=== PATIENT | male | born 1940 | race Caucasian/White ===

== ENCOUNTER 2017-12-10 09:34 | Inpatient (IN) ==
[~2017-12-10 09:34] MED LIST: DEXTROSE 50% 25 GM/50 ML VIAL IV PRN; GLUCAGON 1 MG VIAL IM PRN; NON-FORMULARY MEDICATION (Multivitamin [Multivitamins] 1 EACH) PO SCH; NON-FORMULARY MEDICATION (Oxycodone Hcl [Oxycodone Hcl] 10 MG) PO PRN; amLODIPine 10 MG TABLET PO SCH; traMADol 50 MG TABLET PO PRN
[2017-12-10 10:56] LABS: Basophils # 0.1 10*3/uL (0.0-0.2); Basophils % 0.6 % (0.0-0.8); Eosinophils # 0.3 10*3/uL (0.0-0.87); Eosinophils % 4.4 % (0.00-10.9); Hematocrit 38.6 VOL% (42.0-52.0); Hemoglobin 12.3 GM/DL (14.0-18.0); Immature Granulocytes % 0.4 %; Immature Granulocytes Absolute 0.03 #; Lymphocytes # 2.1 10*3/uL (1.4-4.0); Lymphocytes % 26.7 % (21.2-54.2); Mean Corpuscular HGB Conc 31.9 GM/DL (32-36); Mean Corpuscular Hemoglobin 29 PG (27-34); Mean Corpuscular Volume 91.3 FL (87-102); Mean Platelet Volume 10.6 FL (9.6-12.0); Monocytes # 0.7 10*3/uL (0.11-0.8); Monocytes % 9.5 % (1.7-12.7); Neutrophils # 4.5 10*3/uL (1.4-7.4); Neutrophils % 58.4 % (38.7-73.9); Platelet Count 193 T/CUMM (130-400); Red Blood Count 4.23 MC/CUMM (3.8-5.5); Red Cell Distribution Width 14.1 % (9.3-17.3); White Blood Count 7.8 T/CUMM (4-12)
[2017-12-10 11:31] LABS: Alanine Aminotransferase 18 U/L (16-61); Albumin 3.5 G/DL (3.4-5.0); Alkaline Phosphatase 67 U/L (45-117); Aspartate Amino Transferase 24 U/L (0-37); Bilirubin,Total < 0.39 MG/DL (0.2-1.0); Blood Urea Nitrogen 24 MG/DL (7-18); Calcium 8.2 MG/DL (8.5-10.1); Glucose 90 MG/DL (74-106); Osmolality,Calculated 282.4 MOS/KG (273-304); Potassium 4.2 MMOL/L (3.5-5.1); Sodium 140 MMOL/L (136-145); Total Protein 6.5 G/DL (6.4-8.3)
[2017-12-10] MEDS: CHLORHEXIDINE 0.12% ORAL RINSE 60 ML BOTTLE SWISH/SPIT SCH ×4 (11:43→20:54)
[2017-12-10 12:17] LABS: ABG Base Excess -0.5 MMOL/L (-2.5-2.5); ABG Oxygen Saturation 97.1 % (95-100); ABG PCO2 36.3 MM HG (35-48); ABG PO2 79.9 MM HG (80-95)
[2017-12-10] MEDS: oxyCODONE IR 5 MG TABLET PO PRN ×3 (13:17→23:50)
[2017-12-10] MEDS: CHLORHEXIDINE 4% SOLN 118 ML BOTTLE TOP SCH ×2 (13:45→20:52)
[2017-12-10] MEDS ORDERED: GLUCAGON 1 MG VIAL IM PRN (15:00)
[2017-12-10] MEDS ORDERED: traMADol 50 MG TABLET PO PRN (15:00)
[2017-12-10] MEDS ORDERED: SODIUM CHLORIDE 0.9% 1,000 ML IV SCH (15:00)
[2017-12-10] MEDS ORDERED: DEXTROSE 50% 25 GM/50 ML VIAL IV PRN (15:00)
[2017-12-10] MEDS ORDERED: CHLORHEXIDINE 4% SOLN 118 ML BOTTLE TOP SCH (15:00)
[2017-12-10] MEDS: SODIUM CHLORIDE 0.9% 1,000 ML IV SCH (15:03)
[2017-12-11] MEDS ORDERED: CEFUROXIME INJ 1,500 MG in SODIUM CHLORIDE 0.9% 50 ML IV ONE (05:00)
[2017-12-11] MEDS: CHLORHEXIDINE 4% SOLN 118 ML BOTTLE TOP SCH ×2 (05:00→11:15)
[2017-12-11] MEDS ORDERED: amLODIPine 10 MG TABLET PO SCH (05:00)
[2017-12-11] MEDS ORDERED: VANCOMYCIN 1,000 MG VIAL ONE (05:22)
[2017-12-11] MEDS ORDERED: FAMOTIDINE 20 MG TABLET PO ONE (05:30)
[2017-12-11] MEDS ORDERED: DIAZEPAM 5 MG TABLET PO ONE (05:30)
[2017-12-11] MEDS: CHLORHEXIDINE 0.12% ORAL RINSE 60 ML BOTTLE SWISH/SPIT SCH ×2 (05:41→21:06)
[2017-12-11] MEDS ORDERED: PHENYLEPHRINE DRIP 40 MG/250 ML PREMIX IV ONE (07:08)
[2017-12-11] MEDS ORDERED: CALCIUM CHLORIDE 1,000 MG/10 ML SYRINGE IV ONE (07:08)
[2017-12-11] MEDS ORDERED: NITROPRUSSIDE 50 MG/2 ML VIAL ONE (07:08)
[2017-12-11] MEDS ORDERED: POTASSIUM CHLORIDE RIDER 100 ML IV ONE (07:09)
[2017-12-11] MEDS ORDERED: ALBUMIN 5% 12.5 GM/250 ML VIAL IV ONE (07:10)
[2017-12-11] MEDS ORDERED: SODIUM BICARBONATE 50 MEQ/50 ML SYRINGE IV ONE (07:10)
[2017-12-11] MEDS ORDERED: EPINEPHrine 1 MG/10 ML SYRINGE ONE (07:10)
[2017-12-11 07:38] LABS: ABG Base Excess 0.7 MMOL/L (-2.5-2.5); ABG HCO3 25.1 MMOL/L (20-26); ABG PCO2 28.1 MM HG (35-48); ABG PH 7.514 (7.35-7.45); ABG TCO2 19.9 MMOL/L (23-27); Glucose Heart Surgery 115 MG/DL (74-106); Hematocrit Heart Surgery 36.6 PERCENT (42-52); Hemoglobin Heart Surgery 11.9 G/DL (14.0-18.0); Ionized Calcium Arterial 1.14 MMOL/L (1.21-1.46); PCO2 Patient Temp Arterial 28.1 MMHG; PH Patient Temp Arterial 7.514; Patient Temperature 37 CELCIUS; Potassium Heart/CVR 3.6 MMOL/L (3.5-5.1); Sodium Heart/CVR 140 MMOL/L (135-145)
[2017-12-11 07:50] LABS: Apearance,Urine CLEAR (Clear); Bilirubin,Urine Negative (Negative); Blood, Urine Negative (Negative); Glucose,Urine (UA) Negative (Negative); Ketones,Urine Negative (Negative); Nitrite,Urine Negative (Negative); Protein,Urine Negative; RBC,Urine <1 /HPF (0-4); Squamous Epithelial Cell,Urine Occasional /HPF (0-10); Urine Color Straw (Yellow); Urine Specific Gravity 1.006 (1.001-1.035); Urine Urobilinogen < 2.0 EU/DL (0.2-1.0)
[2017-12-11 08:29] LABS: Hemoglobin Heart Surgery 9.2 G/DL (14.0-18.0); PCO2 Patient Temp Venous 32.9 MM HG; PH Patient Temp Venous 7.483; Potassium Heart/CVR 3.6 MMOL/L (3.5-5.1); VBG Base Excess 0.7 MEQ/L (0-4); VBG HCO3 24.8 MEQ/L (24-28); VBG Oxygen Saturation 83.8 %; VBG PCO2 37.5 MMHG (41-51); VBG PH 7.438; VBG PO2 50.6 MMHG (17-40)
[2017-12-11 08:56] LABS: Hemoglobin Heart Surgery 8.7 G/DL (14.0-18.0); PCO2 Patient Temp Venous 30.4 MM HG; PH Patient Temp Venous 7.505; PO2 Patient Temp Venous 36.9 MM HG; Potassium Heart/CVR 4.4 MMOL/L (3.5-5.1); VBG Base Excess 1.4 MEQ/L (0-4); VBG HCO3 25.5 MEQ/L (24-28); VBG Oxygen Saturation 83.7 %; VBG PCO2 35.2 MMHG (41-51); VBG PH 7.46; VBG PO2 45.5 MMHG (17-40)
[2017-12-11] MEDS ORDERED: MULTIVITAMIN (CENTRUM) TABLET PO SCH (09:00)
[2017-12-11 09:26] LABS: Hematocrit Heart Surgery 27.6 PERCENT (42-52); Hemoglobin Heart Surgery 8.9 G/DL (14.0-18.0); PCO2 Patient Temp Venous 37.5 MM HG; PH Patient Temp Venous 7.439; PO2 Patient Temp Venous 44.4 MM HG; Potassium Heart/CVR 4.7 MMOL/L (3.5-5.1); VBG Base Excess 1.3 MEQ/L (0-4); VBG HCO3 25.4 MEQ/L (24-28); VBG Oxygen Saturation 81.5 %; VBG PCO2 37.5 MMHG (41-51); VBG PH 7.439; VBG PO2 44.4 MMHG (17-40)
[2017-12-11 09:55] LABS: ABG Base Excess -0.2 MMOL/L (-2.5-2.5); ABG HCO3 24.4 MMOL/L (20-26); ABG PCO2 39.5 MM HG (35-48); ABG PH 7.408 (7.35-7.45); ABG PO2 321.1 MM HG (80-95); ABG TCO2 25.6 MMOL/L (23-27); Glucose Heart Surgery 186 MG/DL (74-106); Hemoglobin Heart Surgery 10.5 G/DL (14.0-18.0); Ionized Calcium Arterial 1.25 MMOL/L (1.21-1.46); PCO2 Patient Temp Arterial 39.5 MMHG; PH Patient Temp Arterial 7.408; PO2 Patient Temp Arterial 321.1 MM HG; Patient Temperature 37 CELCIUS; Potassium Heart/CVR 4.1 MMOL/L (3.5-5.1); Sodium Heart/CVR 133 MMOL/L (135-145)
[2017-12-11] MEDS ORDERED: MAGNESIUM SULFATE 1 GM/2 ML VIAL ONE (10:10)
[2017-12-11] MEDS ORDERED: methylPREDNISolone SOD SUC 1,000 MG/8 ML VIAL ONE (10:10)
[2017-12-11] MEDS ORDERED: PHENYLEPHRINE DRIP 20 MG/250 ML PREMIX IV ONE ×2 (10:10→10:44)
[2017-12-11] MEDS ORDERED: HEPARIN 10,000 UNIT/10 ML VIAL ONE (10:10)
[2017-12-11] MEDS ORDERED: ALBUMIN 25% 25 GM/100 ML VIAL IV ONE (10:10)
[2017-12-11] MEDS ORDERED: MANNITOL 12.5 GM/50 ML VIAL IV ONE (10:10)
[2017-12-11] MEDS ORDERED: POTASSIUM CHLORIDE 20 MEQ/10 ML VIAL ONE (10:10)
[2017-12-11] MEDS ORDERED: FUROSEMIDE 20 MG/2 ML VIAL ONE (10:10)
[2017-12-11] MEDS ORDERED: AMIODARONE 150 MG/3 ML VIAL ONE ×2 (10:33→10:45)
[2017-12-11] MEDS ORDERED: SEVOFLURANE 1 UNIT/15 MINUTE INH ONE (10:44)
[2017-12-11] MEDS ORDERED: CALCIUM CHLORIDE 1,000 MG/10 ML VIAL IV ONE (10:44)
[2017-12-11] MEDS ORDERED: HEPARIN/NACL 0.9% 2 UNITS/ML 500 ML IV ONE (10:44)
[2017-12-11] MEDS ORDERED: MIDAZOLAM 10 MG/2 ML VIAL ONE (10:44)
[2017-12-11] MEDS ORDERED: SUFentanil 250 MCG/5 ML AMP ONE (10:44)
[2017-12-11] MEDS ORDERED: VECURONIUM 10 MG VIAL IV ONE (10:45)
[2017-12-11] MEDS ORDERED: SODIUM CHLORIDE 0.9% 2,000 ML IV ONE (10:45)
[2017-12-11] MEDS ORDERED: LACTATED RINGERS 2,000 ML IV ONE (10:45)
[2017-12-11] MEDS ORDERED: SODIUM CHLORIDE 0.9% 250 ML IV ONE (10:45)
[2017-12-11] MEDS ORDERED: TRANEXAMIC ACID 1,000 MG/10 ML VIAL IV ONE (10:45)
[2017-12-11] MEDS ORDERED: SODIUM CHLORIDE 0.9% 200 ML IV ONE (10:45)
[2017-12-11] MEDS ORDERED: ePHEDrine 50 MG/ML AMP ONE (10:45)
[2017-12-11] MEDS ORDERED: ETOMIDATE 40 MG/20 ML VIAL IV ONE (10:45)
[2017-12-11] MEDS ORDERED: NITROGLYCERIN DRIP 50 MG/250 ML BOTTLE IV ONE ×2 (10:45→11:04)
[2017-12-11] MEDS ORDERED: CALCIUM CHLORIDE 1,000 MG/10 ML SYRINGE IV PRN (10:58)
[2017-12-11] MEDS ORDERED: MIDAZOLAM 2 MG/2 ML VIAL IV PRN (10:58)
[2017-12-11] MEDS ORDERED: MORPHINE 2 MG/1 ML SYRINGE IV PRN (10:58)
[2017-12-11] MEDS ORDERED: MAGNESIUM SULF RIDER 2 GM in PREMIX 1 EACH IV PRN (10:58)
[2017-12-11] MEDS ORDERED: POTASSIUM CHLORIDE RIDER 10 MEQ in PREMIX 1 EACH IV PRN (10:58)
[2017-12-11] MEDS ORDERED: MAGNESIUM SULF RIDER 4 GM in PREMIX 1 EACH IV PRN (10:58)
[2017-12-11] MEDS ORDERED: PHENYLEPHRINE DRIP 40 MG/250 ML PREMIX IV PRN (10:58)
[2017-12-11] MEDS ORDERED: ALBUMIN 5% 12.5 GM in PREMIX 1 EACH IV PRN (10:58)
[2017-12-11] MEDS ORDERED: DEXTROSE 50% 25 GM/50 ML VIAL IV PRN ×2 (10:58)
[2017-12-11] MEDS ORDERED: NITROPRUSSIDE 100 MG in DEXTROSE 5% 250 ML IV PRN (10:58)
[2017-12-11] MEDS ORDERED: INSULIN REGULAR 100 UNIT/ML IV PRN (10:58)
[2017-12-11] MEDS ORDERED: VECURONIUM 10 MG VIAL IV PRN ×2 (10:58)
[2017-12-11] MEDS ORDERED: LACTATED RINGERS 250 ML IV PRN (10:58)
[2017-12-11] MEDS ORDERED: MIDAZOLAM 10 MG/2 ML VIAL IV PRN (10:58)
[2017-12-11] MEDS ORDERED: ONDANSETRON 4 MG/2 ML VIAL IV PRN (10:58)
[2017-12-11] MEDS ORDERED: ACETAMINOPHEN 650 MG SUPP RECTAL PRN (10:58)
[2017-12-11] MEDS ORDERED: INSULIN REGULAR 100 UNIT/ML IV ONE (10:58)
[2017-12-11] MEDS ORDERED: SODIUM CHLORIDE 0.45% 1,000 ML IV SCH ×2 (11:00)
[2017-12-11] MEDS ORDERED: INSULIN REGULAR DRIP 100 ML IV SCH (11:00)
[2017-12-11 11:03] LABS: Basophils % 0.3 % (0.0-0.8); Eosinophils # 0.1 10*3/uL (0.0-0.87); Eosinophils % 0.8 % (0.00-10.9); Hematocrit 32.4 VOL% (42.0-52.0); Hemoglobin 10.7 GM/DL (14.0-18.0); Immature Granulocytes % 0.6 %; Immature Granulocytes Absolute 0.06 #; Lymphocytes # 0.8 10*3/uL (1.4-4.0); Lymphocytes % 8.1 % (21.2-54.2); Mean Corpuscular Hemoglobin 29 PG (27-34); Mean Corpuscular Volume 88.8 FL (87-102); Mean Platelet Volume 10.7 FL (9.6-12.0); Monocytes # 0.3 10*3/uL (0.11-0.8); Monocytes % 3.6 % (1.7-12.7); Neutrophils # 8.1 10*3/uL (1.4-7.4); Neutrophils % 86.6 % (38.7-73.9); Platelet Count 147 T/CUMM (130-400); Red Blood Count 3.65 MC/CUMM (3.8-5.5); Red Cell Distribution Width 13.7 % (9.3-17.3); White Blood Count 9.3 T/CUMM (4-12)
[2017-12-11 11:09] LABS: ABG Base Excess 0.7 MMOL/L (-2.5-2.5); ABG HCO3 22.6 MMOL/L (20-26); ABG Oxygen Saturation 98.7 % (95-100); ABG PCO2 27.7 MM HG (35-48); ABG PH 7.529 (7.35-7.45); ABG PO2 174.5 MM HG (80-95); ABG TCO2 23.4 MMOL/L (23-27); Glucose Heart Surgery 171 MG/DL (74-106); Hemoglobin Heart Surgery 11.4 G/DL (14.0-18.0)
[2017-12-11] MEDS: POTASSIUM CHLORIDE RIDER 20 MEQ in PREMIX 1 EACH IV PRN ×4 (11:17→16:11)
[2017-12-11 11:26] LABS: INR 1.3; PT Patient Result 13.2 SECS; Partial Thromboplastin Time 29.9 SECS (0-40)
[2017-12-11] MEDS ORDERED: AMIODARONE INJ 450 MG in DEXTROSE 5% 241 ML IV SCH ×2 (11:30→18:00)
[2017-12-11] MEDS ORDERED: NITROGLYCERIN DRIP 50 MG/250 ML BOTTLE IV SCH (11:30)
[2017-12-11 11:33] LABS: Bilirubin,Total 1.2 MG/DL (0.2-1.0); Calcium 10.1 MG/DL (8.5-10.1); Magnesium 2.1 MG/DL (1.8-2.4); Osmolality,Calculated 283.5 MOS/KG (273-304); Potassium 4.1 MMOL/L (3.5-5.1); Total Protein 5.6 G/DL (6.4-8.3)
[2017-12-11 11:42] LABS: Troponin I Only 2.04 NG/ML (0.00-0.045)
[2017-12-11] MEDS: KETOROLAC 30 MG/1 ML VIAL IV SCH ×3 (12:11→23:32)
[2017-12-11 12:15] LABS: ABG Base Excess 0.5 MMOL/L (-2.5-2.5); ABG HCO3 23.8 MMOL/L (20-26); ABG Oxygen Saturation 98.7 % (95-100); ABG PCO2 33.7 MM HG (35-48); ABG PH 7.466 (7.35-7.45); ABG PO2 148.1 MM HG (80-95); ABG TCO2 24.8 MMOL/L (23-27); Glucose Heart Surgery 186 MG/DL (74-106); Hemoglobin Heart Surgery 12.2 G/DL (14.0-18.0); Potassium Heart/CVR 4.2 MMOL/L (3.5-5.1)
[2017-12-11] MEDS: INSULIN REGULAR 100 UNIT/ML SUBCUT SCH ×3 (13:03→19:24)
[2017-12-11 13:48] LABS: ABG Base Excess -0.5 MMOL/L (-2.5-2.5); ABG HCO3 24.1 MMOL/L (20-26); ABG PCO2 39.5 MM HG (35-48); ABG PH 7.396 (7.35-7.45); ABG TCO2 21.6 MMOL/L (23-27); Glucose Heart Surgery 229 MG/DL (74-106); Hematocrit Heart Surgery 35.9 PERCENT (42-52); Hemoglobin Heart Surgery 11.7 G/DL (14.0-18.0); Potassium Heart/CVR 4.3 MMOL/L (3.5-5.1)
[2017-12-11] MEDS: MORPHINE 10 MG/1 ML VIAL IV PRN ×3 (14:52→23:56)
[2017-12-11 15:49] LABS: ABG Base Excess -1.6 MMOL/L (-2.5-2.5); ABG HCO3 23.1 MMOL/L (20-26); ABG Oxygen Saturation 98.9 % (95-100); ABG PCO2 40.3 MM HG (35-48); ABG PH 7.373 (7.35-7.45); Glucose Heart Surgery 247 MG/DL (74-106); Hemoglobin Heart Surgery 11.7 G/DL (14.0-18.0); Potassium Heart/CVR 4.7 MMOL/L (3.5-5.1)
[2017-12-11] MEDS: CEFUROXIME INJ 1,500 MG in SYRINGE 1 EACH IV SCH (18:25)
[2017-12-11] MEDS ORDERED: FUROSEMIDE 40 MG/4 ML VIAL IV ONE (18:28)
[2017-12-11 19:09] LABS: ABG Base Excess -0.9 MMOL/L (-2.5-2.5); ABG HCO3 23.7 MMOL/L (20-26); ABG Oxygen Saturation 96.9 % (95-100); ABG PCO2 38.9 MM HG (35-48); ABG PH 7.402 (7.35-7.45); ABG TCO2 24.9 MMOL/L (23-27); Glucose Heart Surgery 231 MG/DL (74-106); Hemoglobin Heart Surgery 12.1 G/DL (14.0-18.0); Potassium Heart/CVR 4.8 MMOL/L (3.5-5.1)
[2017-12-11 22:06] LABS: CKMB % 6.9 %
[2017-12-11 22:20] LABS: ABG Base Excess -1.5 MMOL/L (-2.5-2.5); ABG HCO3 22.7 MMOL/L (20-26); ABG Oxygen Saturation 97.4 % (95-100); ABG PCO2 36.5 MM HG (35-48); ABG PH 7.411 (7.35-7.45); ABG TCO2 23.8 MMOL/L (23-27); Glucose Heart Surgery 203 MG/DL (74-106); Hemoglobin Heart Surgery 12.2 G/DL (14.0-18.0); Potassium Heart/CVR 4.4 MMOL/L (3.5-5.1)
[2017-12-11 22:22] LABS: Troponin I Only 3.62 NG/ML (0.00-0.045)
[2017-12-11 23:44] LABS: ABG Base Excess -1.9 MMOL/L (-2.5-2.5); ABG Oxygen Saturation 97.1 % (95-100); ABG PH 7.417 (7.35-7.45); ABG TCO2 23.1 MMOL/L (23-27); Glucose Heart Surgery 196 MG/DL (74-106); Hemoglobin Heart Surgery 12.1 G/DL (14.0-18.0); Potassium Heart/CVR 4.2 MMOL/L (3.5-5.1)
[2017-12-12 00:25] LABS: ABG HCO3 22.2 MMOL/L (20-26); ABG Oxygen Saturation 94.5 % (95-100); ABG PCO2 36.1 MM HG (35-48); ABG PH 7.407 (7.35-7.45); ABG PO2 76.8 MM HG (80-95); ABG TCO2 23.3 MMOL/L (23-27); Glucose Heart Surgery 188 MG/DL (74-106); Hemoglobin Heart Surgery 11.8 G/DL (14.0-18.0); Potassium Heart/CVR 4.2 MMOL/L (3.5-5.1)
[2017-12-12] MEDS: INSULIN REGULAR 100 UNIT/ML SUBCUT SCH ×7 (00:48→23:35)
[2017-12-12 01:41] LABS: ABG Base Excess -1.1 MMOL/L (-2.5-2.5); ABG HCO3 23.3 MMOL/L (20-26); ABG Oxygen Saturation 94.8 % (95-100); ABG PCO2 38.2 MM HG (35-48); ABG PH 7.404 (7.35-7.45); ABG TCO2 24.5 MMOL/L (23-27); Glucose Heart Surgery 166 MG/DL (74-106); Hemoglobin Heart Surgery 11.7 G/DL (14.0-18.0); Potassium Heart/CVR 4.2 MMOL/L (3.5-5.1)
[2017-12-12] MEDS: POTASSIUM CHLORIDE RIDER 20 MEQ in PREMIX 1 EACH IV PRN ×2 (02:07→05:45)
[2017-12-12] MEDS ORDERED: FUROSEMIDE 40 MG/4 ML VIAL IV ONE (02:30)
[2017-12-12 04:30] LABS: ABG Base Excess 0.6 MMOL/L (-2.5-2.5); ABG HCO3 24.6 MMOL/L (20-26); ABG Oxygen Saturation 92.6 % (95-100); ABG PCO2 37.5 MM HG (35-48); ABG PH 7.435 (7.35-7.45); ABG PO2 67.1 MM HG (80-95); ABG TCO2 25.8 MMOL/L (23-27); Glucose Heart Surgery 150 MG/DL (74-106); Hemoglobin Heart Surgery 11.6 G/DL (14.0-18.0)
[2017-12-12 04:37] LABS: Basophils % 0.1 % (0.0-0.8); Hematocrit 32.7 VOL% (42.0-52.0); Hemoglobin 11.1 GM/DL (14.0-18.0); Immature Granulocytes % 0.5 %; Lymphocytes # 0.8 10*3/uL (1.4-4.0); Mean Corpuscular HGB Conc 33.9 GM/DL (32-36); Mean Corpuscular Hemoglobin 30 PG (27-34); Mean Corpuscular Volume 88.1 FL (87-102); Mean Platelet Volume 11.1 FL (9.6-12.0); Monocytes # 0.8 10*3/uL (0.11-0.8); Monocytes % 4.1 % (1.7-12.7); Neutrophils # 17.8 10*3/uL (1.4-7.4); Neutrophils % 91.3 % (38.7-73.9); Platelet Count 166 T/CUMM (130-400); Red Blood Count 3.71 MC/CUMM (3.8-5.5); Red Cell Distribution Width 13.9 % (9.3-17.3); White Blood Count 19.5 T/CUMM (4-12)
[2017-12-12 05:04] LABS: Giant Platelets Few; Hypochromasia 1+; Lymphocytes 2 % (20-55); Ovalocytes Slight; Platelet Estimate Normal; Segmented Neutrophils 92 % (50-85); Total Cells Counted 100
[2017-12-12 05:12] LABS: CKMB % 4.8 %
[2017-12-12 05:14] LABS: Troponin I Only 2.38 NG/ML (0.00-0.045)
[2017-12-12 05:17] LABS: Albumin 3.5 G/DL (3.4-5.0); Bilirubin,Direct 0.17 MG/DL (0.0-0.20); Bilirubin,Total 0.6 MG/DL (0.2-1.0); Calcium 8.9 MG/DL (8.5-10.1); Osmolality,Calculated 289.3 MOS/KG (273-304); Potassium 4.2 MMOL/L (3.5-5.1); Total Protein 6.3 G/DL (6.4-8.3)
[2017-12-12] MEDS: CEFUROXIME INJ 1,500 MG in SYRINGE 1 EACH IV SCH (05:46)
[2017-12-12] MEDS: KETOROLAC 30 MG/1 ML VIAL IV SCH (05:46)
[2017-12-12] MEDS: MORPHINE 10 MG/1 ML VIAL IV PRN (07:31)
[2017-12-12] MEDS: amLODIPine 10 MG TABLET PO SCH (08:24)
[2017-12-12] MEDS: traMADol 50 MG TABLET PO SCH ×3 (08:26→21:48)
[2017-12-12] MEDS: CHLORHEXIDINE 0.12% ORAL RINSE 60 ML BOTTLE SWISH/SPIT SCH ×3 (08:26→21:49)
[2017-12-12] MEDS ORDERED: ALUMINUM/MAGNES/SIMETH MAX STR 30 ML UDCUP PO PRN (08:41)
[2017-12-12] MEDS ORDERED: ONDANSETRON 4 MG/2 ML VIAL IV PRN (08:41)
[2017-12-12] MEDS ORDERED: oxyCODONE/ACETAMINOPHEN 5-325 MG TABLET PO PRN (08:41)
[2017-12-12] MEDS ORDERED: MORPHINE 2 MG/1 ML SYRINGE IV PRN (08:41)
[2017-12-12] MEDS ORDERED: MAGNESIUM SULF RIDER 4 GM in PREMIX 1 EACH IV PRN (08:41)
[2017-12-12] MEDS ORDERED: GLUCAGON 1 MG VIAL IM PRN ×2 (08:41)
[2017-12-12] MEDS ORDERED: MAGNESIUM HYDROXIDE SUSP 30 ML UDCUP PO PRN (08:41)
[2017-12-12] MEDS ORDERED: ACETAMINOPHEN 325 MG TABLET PO PRN (08:41)
[2017-12-12] MEDS ORDERED: POTASSIUM CHLORIDE 20 MEQ TABLET PO PRN (08:41)
[2017-12-12] MEDS ORDERED: DEXTROSE 50% 25 GM/50 ML VIAL IV PRN ×2 (08:41)
[2017-12-12] MEDS ORDERED: MAGNESIUM SULF RIDER 2 GM in PREMIX 1 EACH IV PRN (08:41)
[2017-12-12] MEDS ORDERED: AMIODARONE 200 MG TABLET PO SCH (09:00)
[2017-12-12] MEDS: DOCUSATE SODIUM 100 MG CAPSULE PO SCH (09:37)
[2017-12-12] MEDS: ASPIRIN EC 325 MG TABLET PO SCH (09:37)
[2017-12-12] MEDS: PANTOPRAZOLE 40 MG TABLET PO SCH (09:37)
[2017-12-12] MEDS: FERROUS SULFATE 325 MG TABLET PO SCH (09:38)
[2017-12-12] MEDS: SODIUM CHLOR 0.45% KCL 20 MEQ 20 MEQ/1,000 ML BAG IV SCH (09:41)
[2017-12-12] MEDS: METOPROLOL TARTRATE 25 MG TABLET PO SCH ×2 (10:34→21:47)
[2017-12-12] MEDS: oxyCODONE IR 5 MG TABLET PO SCH ×3 (13:25→21:48)
[2017-12-12] MEDS ORDERED: CLORAZEPATE 3.75 MG TABLET PO PRN (13:31)
[2017-12-12] MEDS: WARFARIN 5 MG TABLET PO SCH (17:32)
[2017-12-12] MEDS ORDERED: CEFUROXIME INJ 1,500 MG in SYRINGE 1 EACH IV ONE (18:00)
[2017-12-12] MEDS ORDERED: HALOPERIDOL 5 MG/ML AMP IM PRN (18:47)
[2017-12-13] MEDS: ZALEPLON 5 MG CAPSULE PO PRN (02:41)
[2017-12-13] MEDS: INSULIN REGULAR 100 UNIT/ML SUBCUT SCH ×5 (04:06→21:12)
[2017-12-13 04:39] LABS: Basophils % 0.1 % (0.0-0.8); Hematocrit 33.2 VOL% (42.0-52.0); Immature Granulocytes % 0.9 %; Immature Granulocytes Absolute 0.29 #; Lymphocytes # 1.3 10*3/uL (1.4-4.0); Mean Corpuscular HGB Conc 33.1 GM/DL (32-36); Mean Corpuscular Hemoglobin 30 PG (27-34); Mean Platelet Volume 11.6 FL (9.6-12.0); Monocytes # 1.7 10*3/uL (0.11-0.8); Monocytes % 5.3 % (1.7-12.7); Neutrophils # 28.6 10*3/uL (1.4-7.4); Neutrophils % 89.7 % (38.7-73.9); Platelet Count 174 T/CUMM (130-400); Red Blood Count 3.69 MC/CUMM (3.8-5.5); Red Cell Distribution Width 14.2 % (9.3-17.3); White Blood Count 31.9 T/CUMM (4-12)
[2017-12-13 04:57] LABS: INR 1.1; PT Patient Result 11.3 SECS
[2017-12-13 05:11] LABS: Albumin 3.4 G/DL (3.4-5.0); Band Neutrophils 1 % (0-10); Bilirubin,Direct 0.17 MG/DL (0.0-0.20); Bilirubin,Indirect 0.4 MG/DL (0.0-1.0); Bilirubin,Total 0.6 MG/DL (0.2-1.0); CKMB % 2.6 %; Calcium 8.9 MG/DL (8.5-10.1); Lymphocytes 2 % (20-55); Magnesium 2.2 MG/DL (1.8-2.4); Osmolality,Calculated 295.3 MOS/KG (273-304); Potassium 4.5 MMOL/L (3.5-5.1); Segmented Neutrophils 95 % (50-85); Total Cells Counted 100; Total Protein 6.4 G/DL (6.4-8.3)
[2017-12-13 05:12] LABS: Hypochromasia Slight; Microcytosis Slight; Ovalocytes Slight; Platelet Estimate Adequate; Troponin I Only 1.26 NG/ML (0.00-0.045)
[2017-12-13] MEDS ORDERED: FUROSEMIDE 40 MG/4 ML VIAL IV ONE (06:00)
[2017-12-13] MEDS: ENOXAPARIN 40 MG/0.4 ML SYRINGE SUBCUT SCH (06:35)
[2017-12-13] MEDS: SODIUM CHLOR 0.45% KCL 20 MEQ 20 MEQ/1,000 ML BAG IV SCH (08:44)
[2017-12-13] MEDS: METOPROLOL TARTRATE 25 MG TABLET PO SCH ×2 (08:59→21:12)
[2017-12-13] MEDS: DOCUSATE SODIUM 100 MG CAPSULE PO SCH (08:59)
[2017-12-13] MEDS: FERROUS SULFATE 325 MG TABLET PO SCH (08:59)
[2017-12-13] MEDS: PANTOPRAZOLE 40 MG TABLET PO SCH (09:00)
[2017-12-13] MEDS: traMADol 50 MG TABLET PO SCH ×3 (09:00→21:11)
[2017-12-13] MEDS: ASPIRIN EC 325 MG TABLET PO SCH (09:01)
[2017-12-13] MEDS: CHLORHEXIDINE 0.12% ORAL RINSE 60 ML BOTTLE SWISH/SPIT SCH ×2 (09:01→21:12)
[2017-12-13] MEDS: amLODIPine 10 MG TABLET PO SCH (09:01)
[2017-12-13] MEDS: oxyCODONE IR 5 MG TABLET PO SCH ×4 (09:01→21:11)
[2017-12-13] MEDS: WARFARIN 5 MG TABLET PO SCH (17:10)
[2017-12-14] MEDS: ZALEPLON 5 MG CAPSULE PO PRN (00:05)
[2017-12-14 05:50] LABS: Basophils % 0.1 % (0.0-0.8); Eosinophils % 0.1 % (0.00-10.9); Hematocrit 33.6 VOL% (42.0-52.0); Hemoglobin 10.9 GM/DL (14.0-18.0); Immature Granulocytes % 0.9 %; Immature Granulocytes Absolute 0.18 #; Lymphocytes % 9.5 % (21.2-54.2); Mean Corpuscular HGB Conc 32.4 GM/DL (32-36); Mean Corpuscular Hemoglobin 29 PG (27-34); Mean Corpuscular Volume 89.8 FL (87-102); Mean Platelet Volume 11.4 FL (9.6-12.0); Monocytes # 1.9 10*3/uL (0.11-0.8); Monocytes % 9.2 % (1.7-12.7); Neutrophils # 16.8 10*3/uL (1.4-7.4); Neutrophils % 80.2 % (38.7-73.9); Platelet Count 159 T/CUMM (130-400); Red Blood Count 3.74 MC/CUMM (3.8-5.5); Red Cell Distribution Width 14.3 % (9.3-17.3)
[2017-12-14 06:12] LABS: INR 1.4; PT Patient Result 14.3 SECS
[2017-12-14 06:28] LABS: Alanine Aminotransferase 21 U/L (16-61); Albumin 3.4 G/DL (3.4-5.0); Alkaline Phosphatase 59 U/L (45-117); Aspartate Amino Transferase 34 U/L (0-37); Bilirubin,Indirect 0.7 MG/DL (0.0-1.0); Blood Urea Nitrogen 43 MG/DL (7-18); Calcium 8.7 MG/DL (8.5-10.1); Glucose 109 MG/DL (74-106); Magnesium 2.1 MG/DL (1.8-2.4); Osmolality,Calculated 294.1 MOS/KG (273-304); Potassium 4.1 MMOL/L (3.5-5.1); Sodium 142 MMOL/L (136-145); Total Protein 6.3 G/DL (6.4-8.3)
[2017-12-14 06:39] LABS: Lymphocytes 7 % (20-55); Platelet Estimate Normal; Segmented Neutrophils 86 % (50-85); Total Cells Counted 100
[2017-12-14 06:40] LABS: Giant Platelets Few; Hypochromasia 1+; Microcytosis Slight
[2017-12-14] MEDS: INSULIN REGULAR 100 UNIT/ML SUBCUT SCH ×4 (08:12→23:25)
[2017-12-14] MEDS: ENOXAPARIN 40 MG/0.4 ML SYRINGE SUBCUT SCH (08:54)
[2017-12-14] MEDS: ASPIRIN EC 325 MG TABLET PO SCH (08:55)
[2017-12-14] MEDS: METOPROLOL TARTRATE 25 MG TABLET PO SCH ×2 (08:55→23:24)
[2017-12-14] MEDS: oxyCODONE IR 5 MG TABLET PO SCH ×4 (08:55→23:24)
[2017-12-14] MEDS: PANTOPRAZOLE 40 MG TABLET PO SCH (08:55)
[2017-12-14] MEDS: FERROUS SULFATE 325 MG TABLET PO SCH (08:55)
[2017-12-14] MEDS: CHLORHEXIDINE 0.12% ORAL RINSE 60 ML BOTTLE SWISH/SPIT SCH ×2 (08:56→23:25)
[2017-12-14] MEDS: traMADol 50 MG TABLET PO SCH ×3 (08:56→23:24)
[2017-12-14] MEDS: amLODIPine 10 MG TABLET PO SCH (08:56)
[2017-12-14] MEDS: DOCUSATE SODIUM 100 MG CAPSULE PO SCH (08:56)
[2017-12-14] MEDS: WARFARIN 5 MG TABLET PO SCH (17:39)
[2017-12-15 05:21] LABS: INR 1.7; PT Patient Result 18.1 SECS
[2017-12-15] MEDS: ENOXAPARIN 40 MG/0.4 ML SYRINGE SUBCUT SCH (06:44)
[2017-12-15] MEDS: ASPIRIN EC 325 MG TABLET PO SCH (08:40)
[2017-12-15] MEDS: traMADol 50 MG TABLET PO SCH ×3 (08:40→21:53)
[2017-12-15] MEDS: amLODIPine 10 MG TABLET PO SCH (08:40)
[2017-12-15] MEDS: INSULIN REGULAR 100 UNIT/ML SUBCUT SCH ×4 (08:40→21:54)
[2017-12-15] MEDS: PANTOPRAZOLE 40 MG TABLET PO SCH (08:40)
[2017-12-15] MEDS: oxyCODONE IR 5 MG TABLET PO SCH ×4 (08:40→21:53)
[2017-12-15] MEDS: FERROUS SULFATE 325 MG TABLET PO SCH (08:40)
[2017-12-15] MEDS: METOPROLOL TARTRATE 25 MG TABLET PO SCH ×2 (08:41→21:53)
[2017-12-15] MEDS: DOCUSATE SODIUM 100 MG CAPSULE PO SCH (08:41)
[2017-12-15] MEDS: CHLORHEXIDINE 0.12% ORAL RINSE 60 ML BOTTLE SWISH/SPIT SCH ×2 (12:43→21:54)
[2017-12-15] MEDS: WARFARIN 5 MG TABLET PO SCH (18:10)
[2017-12-15] MEDS: ZALEPLON 5 MG CAPSULE PO PRN (21:56)
[2017-12-16 05:08] LABS: Basophils % 0.3 % (0.0-0.8); Eosinophils # 0.5 10*3/uL (0.0-0.87); Eosinophils % 4.4 % (0.00-10.9); Hematocrit 31.9 VOL% (42.0-52.0); Hemoglobin 10.3 GM/DL (14.0-18.0); Immature Granulocytes % 0.6 %; Immature Granulocytes Absolute 0.07 #; Lymphocytes # 1.9 10*3/uL (1.4-4.0); Lymphocytes % 16.8 % (21.2-54.2); Mean Corpuscular HGB Conc 32.3 GM/DL (32-36); Mean Corpuscular Hemoglobin 29 PG (27-34); Mean Corpuscular Volume 91.1 FL (87-102); Mean Platelet Volume 11.6 FL (9.6-12.0); Monocytes # 1.1 10*3/uL (0.11-0.8); Monocytes % 9.9 % (1.7-12.7); Neutrophils # 7.8 10*3/uL (1.4-7.4); Platelet Count 179 T/CUMM (130-400); Red Cell Distribution Width 13.9 % (9.3-17.3); White Blood Count 11.4 T/CUMM (4-12)
[2017-12-16 05:25] LABS: INR 2.2
[2017-12-16 05:31] LABS: PT Patient Result 22.3 SECS
[2017-12-16 05:32] LABS: Alanine Aminotransferase 21 U/L (16-61); Albumin 3.1 G/DL (3.4-5.0); Alkaline Phosphatase 58 U/L (45-117); Aspartate Amino Transferase 23 U/L (0-37); Bilirubin,Indirect 0.5 MG/DL (0.0-1.0); Blood Urea Nitrogen 37 MG/DL (7-18); Calcium 8.4 MG/DL (8.5-10.1); Glucose 100 MG/DL (74-106); Magnesium 2.3 MG/DL (1.8-2.4); Potassium 4.3 MMOL/L (3.5-5.1); Sodium 143 MMOL/L (136-145); Total Protein 5.8 G/DL (6.4-8.3)
[2017-12-16 05:37] LABS: Troponin I Only 0.381 NG/ML (0.00-0.045)
[2017-12-16] MEDS: METOPROLOL TARTRATE 25 MG TABLET PO SCH ×2 (08:26→21:02)
[2017-12-16] MEDS: oxyCODONE IR 5 MG TABLET PO SCH ×4 (08:27→21:02)
[2017-12-16] MEDS: DOCUSATE SODIUM 100 MG CAPSULE PO SCH (08:27)
[2017-12-16] MEDS: FERROUS SULFATE 325 MG TABLET PO SCH (08:27)
[2017-12-16] MEDS: PANTOPRAZOLE 40 MG TABLET PO SCH (08:27)
[2017-12-16] MEDS: ASPIRIN EC 325 MG TABLET PO SCH (08:27)
[2017-12-16] MEDS: traMADol 50 MG TABLET PO SCH ×3 (08:27→21:02)
[2017-12-16] MEDS: amLODIPine 10 MG TABLET PO SCH (08:27)
[2017-12-16] MEDS: CHLORHEXIDINE 0.12% ORAL RINSE 60 ML BOTTLE SWISH/SPIT SCH ×2 (08:28→21:10)
[2017-12-16] MEDS: INSULIN REGULAR 100 UNIT/ML SUBCUT SCH ×4 (09:37→21:10)
[2017-12-16] MEDS: WARFARIN 2.5 MG TABLET PO SCH (18:54)
[2017-12-16] MEDS: ZALEPLON 5 MG CAPSULE PO PRN (21:03)
[2017-12-17] MEDS: ZALEPLON 5 MG CAPSULE PO PRN (02:06)
[2017-12-17 06:05] LABS: Basophils % 0.2 % (0.0-0.8); Eosinophils # 0.5 10*3/uL (0.0-0.87); Eosinophils % 4.7 % (0.00-10.9); Hematocrit 30.6 VOL% (42.0-52.0); Hemoglobin 10.2 GM/DL (14.0-18.0); Immature Granulocytes % 0.7 %; Immature Granulocytes Absolute 0.07 #; Lymphocytes # 1.8 10*3/uL (1.4-4.0); Lymphocytes % 16.5 % (21.2-54.2); Mean Corpuscular HGB Conc 33.3 GM/DL (32-36); Mean Corpuscular Hemoglobin 30 PG (27-34); Monocytes # 1.1 10*3/uL (0.11-0.8); Monocytes % 10.2 % (1.7-12.7); Neutrophils # 7.2 10*3/uL (1.4-7.4); Neutrophils % 67.7 % (38.7-73.9); Platelet Count 191 T/CUMM (130-400); Red Blood Count 3.44 MC/CUMM (3.8-5.5); Red Cell Distribution Width 13.8 % (9.3-17.3); White Blood Count 10.6 T/CUMM (4-12)
[2017-12-17 06:15] LABS: INR 2.1
[2017-12-17 06:24] LABS: PT Patient Result 21.6 SECS
[2017-12-17 06:28] LABS: Alanine Aminotransferase 20 U/L (16-61); Alkaline Phosphatase 57 U/L (45-117); Aspartate Amino Transferase 20 U/L (0-37); Bilirubin,Indirect 0.5 MG/DL (0.0-1.0); Blood Urea Nitrogen 34 MG/DL (7-18); Calcium 8.4 MG/DL (8.5-10.1); Glucose 109 MG/DL (74-106); Magnesium 2.1 MG/DL (1.8-2.4); Osmolality,Calculated 291.1 MOS/KG (273-304); Potassium 4.1 MMOL/L (3.5-5.1); Sodium 142 MMOL/L (136-145); Total Protein 5.9 G/DL (6.4-8.3)
[2017-12-17 06:34] LABS: Troponin I Only 0.238 NG/ML (0.00-0.045)
[2017-12-17] MEDS ORDERED: ZOLPIDEM 5 MG TABLET PO PRN (08:20)
[2017-12-17] MEDS: oxyCODONE IR 5 MG TABLET PO SCH ×4 (09:06→20:11)
[2017-12-17] MEDS: DOCUSATE SODIUM 100 MG CAPSULE PO SCH (09:06)
[2017-12-17] MEDS: PANTOPRAZOLE 40 MG TABLET PO SCH (09:06)
[2017-12-17] MEDS: traMADol 50 MG TABLET PO SCH ×3 (09:06→20:11)
[2017-12-17] MEDS: amLODIPine 10 MG TABLET PO SCH (09:06)
[2017-12-17] MEDS: FERROUS SULFATE 325 MG TABLET PO SCH (09:06)
[2017-12-17] MEDS: CHLORHEXIDINE 0.12% ORAL RINSE 60 ML BOTTLE SWISH/SPIT SCH ×2 (09:07→20:13)
[2017-12-17] MEDS: METOPROLOL TARTRATE 25 MG TABLET PO SCH ×2 (09:07→20:11)
[2017-12-17] MEDS: INSULIN REGULAR 100 UNIT/ML SUBCUT SCH ×4 (09:07→20:13)
[2017-12-17] MEDS: ASPIRIN EC 325 MG TABLET PO SCH (09:07)
[2017-12-17] MEDS: WARFARIN 2.5 MG TABLET PO SCH (17:36)
[2017-12-18 08:22] VITALS: BP 130/72
[2017-12-18] MEDS: PANTOPRAZOLE 40 MG TABLET PO SCH (09:36)
[2017-12-18] MEDS: oxyCODONE IR 5 MG TABLET PO SCH (09:36)
[2017-12-18] MEDS: traMADol 50 MG TABLET PO SCH (09:36)
[2017-12-18] MEDS: METOPROLOL TARTRATE 25 MG TABLET PO SCH (09:36)
[2017-12-18] MEDS: ASPIRIN EC 325 MG TABLET PO SCH (09:36)
[2017-12-18] MEDS: DOCUSATE SODIUM 100 MG CAPSULE PO SCH (09:36)
[2017-12-18] MEDS: amLODIPine 10 MG TABLET PO SCH (09:36)
[2017-12-18] MEDS: FERROUS SULFATE 325 MG TABLET PO SCH (09:54)
[2017-12-18] MEDS: INSULIN REGULAR 100 UNIT/ML SUBCUT SCH (09:54)
[2017-12-18] MEDS: CHLORHEXIDINE 0.12% ORAL RINSE 60 ML BOTTLE SWISH/SPIT SCH (09:55)
== END 2017-12-18 11:05 | disposition home or self-care (01) | DRG 220 ==
LOC: N.TELEN 09:34 → N.CVR 12-11 08:08 → N.ICU 12-12 14:15 → N.TELES 12-13 16:23

== ENCOUNTER 2018-07-12 12:32 | Observation (INO) ==
[2018-07-30] MEDS ORDERED: ONDANSETRON 4 MG/2 ML VIAL IV PRN (11:16)
[2018-07-30 11:58] LABS: Basophils # 0.1 10*3/uL (0.0-0.2); Basophils % 0.7 % (0.0-0.8); Eosinophils # 0.2 10*3/uL (0.0-0.87); Eosinophils % 2.1 % (0.00-10.9); Hematocrit 27.7 VOL% (42.0-52.0); Immature Granulocytes % 0.4 %; Immature Granulocytes Absolute 0.03 #; Lymphocytes # 1.1 10*3/uL (1.4-4.0); Lymphocytes % 14.1 % (21.2-54.2); Mean Corpuscular HGB Conc 28.9 GM/DL (32-36); Mean Corpuscular Hemoglobin 24 PG (27-34); Mean Corpuscular Volume 82.9 FL (87-102); Mean Platelet Volume 10.3 FL (9.6-12.0); Monocytes # 0.8 10*3/uL (0.11-0.8); Monocytes % 9.4 % (1.7-12.7); Neutrophils # 5.9 10*3/uL (1.4-7.4); Neutrophils % 73.3 % (38.7-73.9); Platelet Count 263 T/CUMM (130-400); Red Blood Count 3.34 MC/CUMM (3.8-5.5); Red Cell Distribution Width 19.5 % (9.3-17.3)
[2018-07-30 12:31] LABS: Calcium 8.4 MG/DL (8.5-10.1); Osmolality,Calculated 293.4 MOS/KG (273-304); Potassium 5.1 MMOL/L (3.5-5.1)
[2018-07-30 12:34] LABS: Anisocytosis 1+; Hypochromasia 1+; Microcytosis 1+; Ovalocytes Few; Platelet Estimate Normal; Polychromasia Slight
[2018-07-30 13:51] LABS: INR 1.3
[2018-07-30 14:34] LABS: % Iron Saturation 3.7 % (18-50)
[2018-07-30] MEDS ORDERED: WARFARIN 2.5 MG TABLET PO SCH (18:00)
[2018-07-30] MEDS ORDERED: FUROSEMIDE 40 MG/4 ML VIAL IV ONE (18:00)
[2018-07-30] MEDS ORDERED: MIRTAZAPINE 15 MG TABLET PO SCH (21:00)
[2018-07-30] MEDS: METOPROLOL TARTRATE 50 MG TABLET PO SCH (21:22)
[2018-07-30] MEDS: DOCUSATE SODIUM 100 MG CAPSULE PO SCH (21:22)
[2018-07-30 21:50] LABS: Hematocrit 32.2 VOL% (42.0-52.0); Hemoglobin 9.5 GM/DL (14.0-18.0)
[2018-07-31 04:38] LABS: Basophils # 0.1 10*3/uL (0.0-0.2); Eosinophils # 0.1 10*3/uL (0.0-0.87); Eosinophils % 1.6 % (0.00-10.9); Hematocrit 30.4 VOL% (42.0-52.0); Hemoglobin 9.1 GM/DL (14.0-18.0); Immature Granulocytes % 0.4 %; Immature Granulocytes Absolute 0.03 #; Lymphocytes # 0.9 10*3/uL (1.4-4.0); Lymphocytes % 11.1 % (21.2-54.2); Mean Corpuscular HGB Conc 29.9 GM/DL (32-36); Mean Corpuscular Hemoglobin 25 PG (27-34); Mean Corpuscular Volume 84.7 FL (87-102); Mean Platelet Volume 10.4 FL (9.6-12.0); Monocytes # 0.8 10*3/uL (0.11-0.8); Monocytes % 9.6 % (1.7-12.7); Neutrophils # 6.1 10*3/uL (1.4-7.4); Neutrophils % 76.3 % (38.7-73.9); Platelet Count 231 T/CUMM (130-400); Red Blood Count 3.59 MC/CUMM (3.8-5.5); Red Cell Distribution Width 18.4 % (9.3-17.3)
[2018-07-31 04:45] LABS: INR 1.3; PT Patient Result 13.5 SECS
[2018-07-31 05:05] LABS: Calcium 8.6 MG/DL (8.5-10.1); Osmolality,Calculated 296.3 MOS/KG (273-304); Potassium 4.8 MMOL/L (3.5-5.1)
[2018-07-31] MEDS: METOPROLOL TARTRATE 50 MG TABLET PO SCH (08:40)
[2018-07-31] MEDS: DOCUSATE SODIUM 100 MG CAPSULE PO SCH (08:40)
[2018-07-31] MEDS ORDERED: PANTOPRAZOLE 40 MG TABLET PO SCH (09:00)
[2018-07-31] MEDS ORDERED: SPIRONOLACTONE 50 MG TABLET PO SCH (09:00)
[2018-07-31] MEDS ORDERED: FERROUS SULFATE 325 MG TABLET PO SCH (09:00)
[2018-07-31] MEDS ORDERED: FUROSEMIDE 40 MG TABLET PO SCH (09:00)
[2018-07-31] MEDS ORDERED: POTASSIUM CHLORIDE 20 MEQ TABLET PO SCH (09:00)
[2018-07-31 11:34] VITALS: BP 94/71
[2018-07-31] MEDS ORDERED: WARFARIN 5 MG TABLET PO SCH (18:00)
== END 2018-07-31 14:44 | disposition home or self-care (01) ==
LOC: N.2W 07-30 11:07 → INTOOBSV 07-30 11:07 → N.2E 07-30 12:01
PROVIDERS: ADMIT Family Medicine; ATTEND Family Medicine

== ENCOUNTER 2018-07-12 14:15 | Observation (INO) ==
[2018-07-12] MEDS ORDERED: ONDANSETRON 4 MG/2 ML VIAL IV PRN (15:48)
[2018-07-12 16:22] LABS: Basophils # 0.1 10*3/uL (0.0-0.2); Basophils % 0.5 % (0.0-0.8); Eosinophils # 0.2 10*3/uL (0.0-0.87); Eosinophils % 2.3 % (0.00-10.9); Hematocrit 21.1 VOL% (42.0-52.0); Immature Granulocytes % 0.5 %; Immature Granulocytes Absolute 0.05 #; Lymphocytes # 1.4 10*3/uL (1.4-4.0); Lymphocytes % 14.9 % (21.2-54.2); Mean Corpuscular HGB Conc 28.9 GM/DL (32-36); Mean Corpuscular Hemoglobin 24 PG (27-34); Mean Corpuscular Volume 82.1 FL (87-102); Mean Platelet Volume 10.4 FL (9.6-12.0); Monocytes # 0.9 10*3/uL (0.11-0.8); Monocytes % 9.6 % (1.7-12.7); NRBC # 0.02 10*3/uL; Neutrophils # 6.6 10*3/uL (1.4-7.4); Neutrophils % 72.2 % (38.7-73.9); Platelet Count 209 T/CUMM (130-400); Red Blood Count 2.57 MC/CUMM (3.8-5.5); Red Cell Distribution Width 19.7 % (9.3-17.3); White Blood Count 9.2 T/CUMM (4-12)
[2018-07-12] MEDS ORDERED: SODIUM CHLORIDE 0.9% 1,000 ML IV PRN (16:36)
[2018-07-12 16:48] LABS: Albumin 2.7 G/DL (3.4-5.0); Bilirubin,Total 0.4 MG/DL (0.2-1.0); Calcium 8.3 MG/DL (8.5-10.1); Osmolality,Calculated 305.1 MOS/KG (273-304); Potassium 3.8 MMOL/L (3.5-5.1); Total Protein 6.5 G/DL (6.4-8.3)
[2018-07-12 17:07] LABS: Troponin I < 0.015 NG/ML (0.00-0.045)
[2018-07-12 18:02] LABS: Anisocytosis 1+; Elliptocytes 1+; Platelet Estimate Adequate; Poikilocytosis 1+
[2018-07-12 18:03] LABS: Hypochromasia 2+; Microcytosis 1+; Target Cells Few
[2018-07-12 18:04] LABS: Stomatocytes 1+
[2018-07-12 18:05] LABS: INR 3.4
[2018-07-12 18:06] LABS: PT Patient Result 34.4 SECS
[2018-07-12] MEDS: METOPROLOL TARTRATE 50 MG TABLET PO SCH (20:42)
[2018-07-12] MEDS: DOCUSATE SODIUM 100 MG CAPSULE PO SCH (20:42)
[2018-07-12] MEDS: FUROSEMIDE 40 MG TABLET PO SCH (20:42)
[2018-07-13 00:50] LABS: Apearance,Urine CLEAR (Clear); Bilirubin,Urine Negative (Negative); Blood, Urine Negative (Negative); Glucose,Urine (UA) Negative (Negative); Ketones,Urine Negative (Negative); Mucus,Urine Occasional /LPF (Occasional); Nitrite,Urine Negative (Negative); Protein,Urine Negative; Urine Color Straw (Yellow); Urine Specific Gravity 1.006 (1.001-1.035); Urine Urobilinogen < 2.0 EU/DL (0.2-1.0)
[2018-07-13 03:07] LABS: Hematocrit 26.9 VOL% (42.0-52.0); Hemoglobin 8.2 GM/DL (14.0-18.0)
[2018-07-13 03:29] LABS: INR 3.1
[2018-07-13 03:36] LABS: PT Patient Result 31.3 SECS
[2018-07-13] MEDS ORDERED: POTASSIUM CHLORIDE 20 MEQ TABLET PO SCH (08:00)
[2018-07-13] MEDS: METOPROLOL TARTRATE 50 MG TABLET PO SCH (08:42)
[2018-07-13] MEDS: DOCUSATE SODIUM 100 MG CAPSULE PO SCH (08:47)
[2018-07-13] MEDS: FUROSEMIDE 40 MG TABLET PO SCH (08:47)
[2018-07-13] MEDS ORDERED: PANTOPRAZOLE 40 MG TABLET PO SCH (09:00)
[2018-07-13] MEDS ORDERED: SPIRONOLACTONE 50 MG TABLET PO SCH (09:00)
[2018-07-13 11:51] VITALS: BP 85/56
[2018-07-13 15:26] LABS: Hemoglobin 6.1 GM/DL (14.0-18.0)
== END 2018-07-13 12:43 | disposition home or self-care (01) ==
LOC: N.2E 14:43 → INTOOBSV 14:43
PROVIDERS: ADMIT Family Medicine; ATTEND Family Medicine

== ENCOUNTER 2021-06-29 08:30 | Inpatient (IN) ==
[2021-06-29 09:05] LABS: Basophils # 0.1 10*3/uL (0.0-0.2); Basophils % 0.5 % (0.0-0.8); Eosinophils # 0.2 10*3/uL (0.0-0.87); Eosinophils % 2.2 % (0.00-10.9); Hematocrit 39.7 VOL% (42.0-52.0); Hemoglobin 12.3 GM/DL (14.0-18.0); Immature Granulocytes % 0.4 %; Immature Granulocytes Absolute 0.04 #; Lymphocytes # 1.3 10*3/uL (1.4-4.0); Lymphocytes % 14.5 % (21.2-54.2); Mean Corpuscular Volume 88.2 FL (87-102); Monocytes % 8.2 % (1.7-12.7); Neutrophils % 74.2 % (38.7-73.9); Platelet Count 274 T/CUMM (130-400); Red Cell Distribution Width 17.2 % (9.3-17.3); White Blood Count 9.1 T/CUMM (4-12)
[2021-06-29] MEDS ORDERED: MORPHINE 2 MG/1 ML SYRINGE IV STA (09:14)
[2021-06-29] MEDS ORDERED: ONDANSETRON 4 MG/2 ML VIAL IV ONE (09:14)
[2021-06-29 09:22] LABS: INR 1.7; PT Patient Result 18.2 SECS (10.5-12.0); Partial Thromboplastin Time 38.2 SECS (23.9-33.8)
[2021-06-29 09:30] LABS: Alanine Aminotransferase 21 U/L (16-61); Albumin 3.1 G/DL (3.4-5.0); Alkaline Phosphatase 110 U/L (45-117); Aspartate Amino Transferase 38 U/L (0-37); Bilirubin,Total < 0.39 MG/DL (0.20-1.00); Blood Urea Nitrogen 88 MG/DL (7-18); Calcium 9.6 MG/DL (8.5-10.1); Carbon Dioxide 25 MMOL/L (21-32); Estimated Glom Filtration Rate 44 ML/MIN; Glucose 110 MG/DL (74-106); Osmolality,Calculated 306.4 MOS/KG (273-304); Potassium 4.3 MMOL/L (3.5-5.1); Sodium 140 MMOL/L (136-145); Total Protein 8.6 G/DL (6.4-8.2)
[2021-06-29] MEDS ORDERED: ONDANSETRON 4 MG/2 ML VIAL IV PRN (09:49)
[2021-06-29] MEDS ORDERED: ERTAPENEM 1,000 MG VIAL IV SCH (11:30)
[2021-06-29] MEDS ORDERED: DAPTOmycin 500 MG VIAL IV SCH (11:30)
[2021-06-29] MEDS ORDERED: PHYTONADIONE 10 MG/1 ML AMP SUBCUT ONE ×2 (12:01→12:30)
[2021-06-29] MEDS: DEXTROSE 5% NACL 0.45% 1,000 ML IV SCH ×2 (12:41→17:01)
[2021-06-29] MEDS: MORPHINE 2 MG/1 ML SYRINGE IV PRN ×2 (12:56→17:43)
[2021-06-29] MEDS: ERTAPENEM 1,000 MG in SODIUM CHLORIDE 0.9% 100 ML IV SCH (14:24)
[2021-06-29] MEDS: FERROUS SULFATE 325 MG TABLET PO SCH (17:28)
[2021-06-29] MEDS: ACETAMINOPHEN 325 MG TABLET PO SCH (22:06)
[2021-06-30] MEDS: DEXTROSE 5% NACL 0.45% 1,000 ML IV SCH ×5 (03:24→21:12)
[2021-06-30] MEDS: MORPHINE 2 MG/1 ML SYRINGE IV PRN (05:42)
[2021-06-30 07:37] LABS: Basophils % 0.3 % (0.0-0.8); Eosinophils # 0.2 10*3/uL (0.0-0.87); Eosinophils % 1.6 % (0.00-10.9); Hematocrit 36.8 VOL% (42.0-52.0); Hemoglobin 11.1 GM/DL (14.0-18.0); Immature Granulocytes % 0.3 %; Immature Granulocytes Absolute 0.03 #; Lymphocytes # 1.1 10*3/uL (1.4-4.0); Lymphocytes % 11.2 % (21.2-54.2); Mean Corpuscular HGB Conc 30.2 GM/DL (32-36); Mean Corpuscular Volume 90.4 FL (87-102); Mean Platelet Volume 10.2 FL (9.6-12.0); Monocytes % 10.1 % (1.7-12.7); Neutrophils % 76.5 % (38.7-73.9); Platelet Count 226 T/CUMM (130-400); Red Blood Count 4.07 MC/CUMM (3.8-5.5)
[2021-06-30] MEDS: FERROUS SULFATE 325 MG TABLET PO SCH ×2 (07:38→18:02)
[2021-06-30 07:49] LABS: INR 1.9; PT Patient Result 20.3 SECS (10.5-12.0)
[2021-06-30 07:53] LABS: Alanine Aminotransferase 15 U/L (16-61); Albumin 2.8 G/DL (3.4-5.0); Alkaline Phosphatase 89 U/L (45-117); Aspartate Amino Transferase 31 U/L (0-37); Bilirubin,Total < 0.39 MG/DL (0.20-1.00); Blood Urea Nitrogen 62 MG/DL (7-18); Calcium 8.6 MG/DL (8.5-10.1); Carbon Dioxide 25 MMOL/L (21-32); Estimated Glom Filtration Rate 56 ML/MIN; Glucose 133 MG/DL (74-106); Osmolality,Calculated 296.5 MOS/KG (273-304); Sodium 139 MMOL/L (136-145); Total Protein 7.5 G/DL (6.4-8.2)
[2021-06-30] MEDS ORDERED: fentaNYL 100 MCG/2 ML VIAL ONE (07:55)
[2021-06-30] MEDS ORDERED: ERTAPENEM 1,000 MG in SODIUM CHLORIDE 0.9% 100 ML IV ONE (08:00)
[2021-06-30] MEDS: PANTOPRAZOLE 20 MG TABLET PO SCH (08:09)
[2021-06-30] MEDS: POTASSIUM CHLORIDE 20 MEQ TABLET PO SCH (08:09)
[2021-06-30] MEDS ORDERED: SODIUM CHLORIDE 0.9% 1,000 ML IV PRN (08:19)
[2021-06-30] MEDS: MIDODRINE 5 MG TABLET PO SCH (08:58)
[2021-06-30] MEDS: FUROSEMIDE 40 MG TABLET PO SCH (08:58)
[2021-06-30] MEDS: METOPROLOL SUCCINATE XL 25 MG TABLET PO SCH (08:59)
[2021-06-30] MEDS ORDERED: PANTOPRAZOLE 40 MG VIAL IV SCH (09:00)
[2021-06-30] MEDS ORDERED: NEOSTIGMINE 10 MG/10 ML VIAL ONE (10:17)
[2021-06-30] MEDS ORDERED: propofoL 200 MG/20 ML VIAL IV ONE (10:28)
[2021-06-30] MEDS ORDERED: SODIUM CHLORIDE 0.9% 1,000 ML IV ONE (10:28)
[2021-06-30] MEDS ORDERED: LIDOCAINE 2% 5 ML VIAL ONE (10:28)
[2021-06-30] MEDS ORDERED: ROCURONIUM 50 MG/5 ML VIAL IV ONE (10:28)
[2021-06-30] MEDS ORDERED: ETOMIDATE 40 MG/20 ML VIAL IV ONE (10:28)
[2021-06-30] MEDS ORDERED: SEVOFLURANE 1 UNIT/15 MINUTE INH ONE (10:28)
[2021-06-30] MEDS ORDERED: ONDANSETRON 4 MG/2 ML VIAL ONE (10:28)
[2021-06-30] MEDS ORDERED: PHENYLEPHRINE 1 MG/10 ML SYRINGE IV ONE (10:28)
[2021-06-30] MEDS ORDERED: GLYCOPYRROLATE 0.4 MG/2 ML VIAL ONE (10:29)
[2021-06-30] MEDS ORDERED: BUPIVACAINE MPF 0.25% 30 ML VIAL ONE (10:31)
[2021-06-30] MEDS ORDERED: DEXAMETHASONE 4 MG/1 ML VIAL ONE (10:31)
[2021-06-30] MEDS ORDERED: diphenhydrAMINE 50 MG/1 ML VIAL IV PRN (10:56)
[2021-06-30] MEDS ORDERED: PROMETHAZINE INJ 25 MG in SODIUM CHLORIDE 0.9% 50 ML IV PRN (10:56)
[2021-06-30] MEDS ORDERED: ONDANSETRON 4 MG/2 ML VIAL IV PRN (10:56)
[2021-06-30] MEDS: HYDROmorphone 2 MG/1 ML VIAL IV PRN ×4 (11:00→11:15)
[2021-06-30] MEDS ORDERED: MAGNESIUM HYDROXIDE SUSP 30 ML UDCUP PO PRN (11:05)
[2021-06-30] MEDS ORDERED: LABETALOL 20 MG/4 ML SYRINGE IV ONE (11:09)
[2021-06-30] MEDS: ERTAPENEM 1,000 MG in SODIUM CHLORIDE 0.9% 100 ML IV SCH (13:36)
[2021-06-30] MEDS: WARFARIN 3 MG TABLET PO SCH (18:02)
[2021-06-30] MEDS: ACETAMINOPHEN 325 MG TABLET PO SCH (21:06)
[2021-06-30] MEDS: DOCUSATE SODIUM 100 MG CAPSULE PO SCH (21:06)
[2021-07-01] MEDS: MORPHINE 2 MG/1 ML SYRINGE IV PRN (04:55)
[2021-07-01] MEDS: DEXTROSE 5% NACL 0.45% 1,000 ML IV SCH (05:00)
[2021-07-01 05:54] LABS: Basophils % 0.1 % (0.0-0.8); Hematocrit 31.8 VOL% (42.0-52.0); Hemoglobin 9.8 GM/DL (14.0-18.0); Immature Granulocytes % 0.4 %; Immature Granulocytes Absolute 0.04 #; Lymphocytes % 9.5 % (21.2-54.2); Mean Corpuscular HGB Conc 30.8 GM/DL (32-36); Mean Corpuscular Volume 91.6 FL (87-102); Mean Platelet Volume 10.6 FL (9.6-12.0); Monocytes % 10.3 % (1.7-12.7); Neutrophils % 79.7 % (38.7-73.9); Platelet Count 183 T/CUMM (130-400); Red Blood Count 3.47 MC/CUMM (3.8-5.5); Red Cell Distribution Width 16.5 % (9.3-17.3); White Blood Count 10.1 T/CUMM (4-12)
[2021-07-01 06:01] LABS: INR 2.1; PT Patient Result 22.1 SECS (10.5-12.0)
[2021-07-01 06:22] LABS: Calcium 8.3 MG/DL (8.5-10.1); Osmolality,Calculated 288.7 MOS/KG (273-304); Potassium 4.2 MMOL/L (3.5-5.1)
[2021-07-01] MEDS: LACTATED RINGERS 1,000 ML IV SCH (08:03)
[2021-07-01] MEDS: PANTOPRAZOLE 20 MG TABLET PO SCH (08:03)
[2021-07-01] MEDS: DOCUSATE SODIUM 100 MG CAPSULE PO SCH ×2 (08:03→20:31)
[2021-07-01] MEDS: METOPROLOL SUCCINATE XL 25 MG TABLET PO SCH (08:03)
[2021-07-01] MEDS: FUROSEMIDE 40 MG TABLET PO SCH (08:03)
[2021-07-01] MEDS: FERROUS SULFATE 325 MG TABLET PO SCH ×2 (08:03→16:30)
[2021-07-01] MEDS: POTASSIUM CHLORIDE 20 MEQ TABLET PO SCH (08:03)
[2021-07-01] MEDS: ERTAPENEM 1,000 MG in SODIUM CHLORIDE 0.9% 100 ML IV SCH (13:50)
[2021-07-01] MEDS: WARFARIN 4 MG TABLET PO SCH (18:19)
[2021-07-01] MEDS: ACETAMINOPHEN 325 MG TABLET PO SCH (20:31)
[2021-07-02] MEDS: MORPHINE 2 MG/1 ML SYRINGE IV PRN (03:16)
[2021-07-02] MEDS: LACTATED RINGERS 1,000 ML IV SCH (05:11)
[2021-07-02 05:17] LABS: Basophils # 0.1 10*3/uL (0.0-0.2); Basophils % 0.6 % (0.0-0.8); Eosinophils # 0.3 10*3/uL (0.0-0.87); Hematocrit 32.9 VOL% (42.0-52.0); Hemoglobin 10.1 GM/DL (14.0-18.0); Immature Granulocytes % 0.5 %; Immature Granulocytes Absolute 0.06 #; Lymphocytes # 2.4 10*3/uL (1.4-4.0); Lymphocytes % 18.9 % (21.2-54.2); Mean Corpuscular HGB Conc 30.7 GM/DL (32-36); Mean Corpuscular Volume 90.9 FL (87-102); Mean Platelet Volume 11.1 FL (9.6-12.0); Platelet Count 245 T/CUMM (130-400); Red Blood Count 3.62 MC/CUMM (3.8-5.5); Red Cell Distribution Width 16.4 % (9.3-17.3); White Blood Count 12.7 T/CUMM (4-12)
[2021-07-02 05:21] LABS: INR 2.2; PT Patient Result 23.5 SECS (10.5-12.0)
[2021-07-02 05:41] LABS: Calcium 8.6 MG/DL (8.5-10.1); Osmolality,Calculated 283.8 MOS/KG (273-304); Potassium 4.3 MMOL/L (3.5-5.1)
[2021-07-02] MEDS: FERROUS SULFATE 325 MG TABLET PO SCH ×2 (09:23→16:35)
[2021-07-02] MEDS: FUROSEMIDE 40 MG TABLET PO SCH (09:24)
[2021-07-02] MEDS: MIDODRINE 5 MG TABLET PO SCH (09:24)
[2021-07-02] MEDS: POTASSIUM CHLORIDE 20 MEQ TABLET PO SCH (09:24)
[2021-07-02] MEDS: METOPROLOL SUCCINATE XL 25 MG TABLET PO SCH (09:24)
[2021-07-02] MEDS: DOCUSATE SODIUM 100 MG CAPSULE PO SCH ×2 (09:24→20:52)
[2021-07-02] MEDS: PANTOPRAZOLE 20 MG TABLET PO SCH (09:24)
[2021-07-02] MEDS: ERTAPENEM 1,000 MG in SODIUM CHLORIDE 0.9% 100 ML IV SCH (13:55)
[2021-07-02] MEDS: WARFARIN 4 MG TABLET PO SCH (18:05)
[2021-07-02] MEDS: ACETAMINOPHEN 325 MG TABLET PO SCH (20:52)
[2021-07-03 06:21] LABS: Basophils # 0.1 10*3/uL (0.0-0.2); Basophils % 0.6 % (0.0-0.8); Eosinophils # 0.2 10*3/uL (0.0-0.87); Eosinophils % 1.7 % (0.00-10.9); Hematocrit 34.8 VOL% (42.0-52.0); Hemoglobin 10.7 GM/DL (14.0-18.0); Immature Granulocytes % 0.5 %; Immature Granulocytes Absolute 0.05 #; Lymphocytes # 1.2 10*3/uL (1.4-4.0); Lymphocytes % 11.1 % (21.2-54.2); Mean Corpuscular HGB Conc 30.7 GM/DL (32-36); Mean Corpuscular Volume 90.2 FL (87-102); Neutrophils % 75.1 % (38.7-73.9); Platelet Count 243 T/CUMM (130-400); Red Blood Count 3.86 MC/CUMM (3.8-5.5); Red Cell Distribution Width 16.4 % (9.3-17.3); White Blood Count 10.9 T/CUMM (4-12)
[2021-07-03 06:40] LABS: INR 2.3; PT Patient Result 24.5 SECS (10.5-12.0)
[2021-07-03 06:55] LABS: Calcium 8.8 MG/DL (8.5-10.1); Osmolality,Calculated 287.5 MOS/KG (273-304); Potassium 3.9 MMOL/L (3.5-5.1)
[2021-07-03] MEDS: DOCUSATE SODIUM 100 MG CAPSULE PO SCH ×2 (09:52→21:41)
[2021-07-03] MEDS: FERROUS SULFATE 325 MG TABLET PO SCH ×2 (09:52→17:55)
[2021-07-03] MEDS: FUROSEMIDE 40 MG TABLET PO SCH (09:52)
[2021-07-03] MEDS: POTASSIUM CHLORIDE 20 MEQ TABLET PO SCH (09:52)
[2021-07-03] MEDS: PANTOPRAZOLE 20 MG TABLET PO SCH (09:53)
[2021-07-03] MEDS: METOPROLOL SUCCINATE XL 25 MG TABLET PO SCH (09:53)
[2021-07-03] MEDS: ERTAPENEM 1,000 MG in SODIUM CHLORIDE 0.9% 100 ML IV SCH (16:10)
[2021-07-03] MEDS: WARFARIN 4 MG TABLET PO SCH (17:55)
[2021-07-03] MEDS: ACETAMINOPHEN 325 MG TABLET PO SCH (21:40)
[2021-07-04 06:52] LABS: Basophils # 0.1 10*3/uL (0.0-0.2); Basophils % 0.5 % (0.0-0.8); Eosinophils # 0.4 10*3/uL (0.0-0.87); Eosinophils % 3.8 % (0.00-10.9); Hematocrit 33.3 VOL% (42.0-52.0); Hemoglobin 10.4 GM/DL (14.0-18.0); Immature Granulocytes % 0.3 %; Immature Granulocytes Absolute 0.03 #; Lymphocytes # 1.1 10*3/uL (1.4-4.0); Lymphocytes % 11.4 % (21.2-54.2); Mean Corpuscular HGB Conc 31.2 GM/DL (32-36); Mean Platelet Volume 10.2 FL (9.6-12.0); Monocytes % 9.4 % (1.7-12.7); Neutrophils % 74.6 % (38.7-73.9); Platelet Count 244 T/CUMM (130-400); Red Blood Count 3.66 MC/CUMM (3.8-5.5); White Blood Count 9.5 T/CUMM (4-12)
[2021-07-04 07:12] LABS: INR 2.9; PT Patient Result 29.9 SECS (10.5-12.0)
[2021-07-04] MEDS: DOCUSATE SODIUM 100 MG CAPSULE PO SCH ×2 (10:07→21:49)
[2021-07-04] MEDS: FERROUS SULFATE 325 MG TABLET PO SCH ×2 (10:07→17:25)
[2021-07-04] MEDS: METOPROLOL SUCCINATE XL 25 MG TABLET PO SCH (10:08)
[2021-07-04] MEDS: PANTOPRAZOLE 20 MG TABLET PO SCH (10:08)
[2021-07-04] MEDS: POTASSIUM CHLORIDE 20 MEQ TABLET PO SCH (10:08)
[2021-07-04] MEDS: FUROSEMIDE 40 MG TABLET PO SCH (10:08)
[2021-07-04] MEDS: ERTAPENEM 1,000 MG in SODIUM CHLORIDE 0.9% 100 ML IV SCH (14:25)
[2021-07-04] MEDS: WARFARIN 4 MG TABLET PO SCH (17:26)
[2021-07-04] MEDS: ACETAMINOPHEN 325 MG TABLET PO SCH (21:49)
[2021-07-05] MEDS: POTASSIUM CHLORIDE 20 MEQ TABLET PO SCH (08:46)
[2021-07-05] MEDS: FERROUS SULFATE 325 MG TABLET PO SCH ×2 (08:46→16:50)
[2021-07-05] MEDS: MIDODRINE 5 MG TABLET PO SCH (08:46)
[2021-07-05] MEDS: DOCUSATE SODIUM 100 MG CAPSULE PO SCH ×2 (08:47→20:54)
[2021-07-05] MEDS: FUROSEMIDE 40 MG TABLET PO SCH (08:47)
[2021-07-05] MEDS: PANTOPRAZOLE 20 MG TABLET PO SCH (08:47)
[2021-07-05] MEDS: METOPROLOL SUCCINATE XL 25 MG TABLET PO SCH (08:47)
[2021-07-05] MEDS: ERTAPENEM 1,000 MG in SODIUM CHLORIDE 0.9% 100 ML IV SCH (13:16)
[2021-07-05] MEDS: WARFARIN 3 MG TABLET PO SCH (17:00)
[2021-07-05] MEDS: ACETAMINOPHEN 325 MG TABLET PO SCH (20:54)
[2021-07-06 05:12] LABS: Basophils # 0.1 10*3/uL (0.0-0.2); Basophils % 0.6 % (0.0-0.8); Eosinophils # 0.4 10*3/uL (0.0-0.87); Eosinophils % 3.2 % (0.00-10.9); Hematocrit 35.7 VOL% (42.0-52.0); Hemoglobin 11.1 GM/DL (14.0-18.0); Immature Granulocytes % 1.2 %; Immature Granulocytes Absolute 0.13 #; Lymphocytes # 2.1 10*3/uL (1.4-4.0); Lymphocytes % 18.4 % (21.2-54.2); Mean Corpuscular HGB Conc 31.1 GM/DL (32-36); Mean Corpuscular Volume 90.4 FL (87-102); Mean Platelet Volume 10.3 FL (9.6-12.0); Neutrophils % 66.6 % (38.7-73.9); Platelet Count 292 T/CUMM (130-400); Red Blood Count 3.95 MC/CUMM (3.8-5.5); Red Cell Distribution Width 15.9 % (9.3-17.3); White Blood Count 11.2 T/CUMM (4-12)
[2021-07-06 05:26] LABS: Albumin 2.6 G/DL (3.4-5.0); Bilirubin,Total 1.6 MG/DL (0.20-1.00); Calcium 8.8 MG/DL (8.5-10.1); Osmolality,Calculated 291.5 MOS/KG (273-304); Potassium 4.4 MMOL/L (3.5-5.1); Total Protein 7.1 G/DL (6.4-8.2)
[2021-07-06 08:03] LABS: PT Patient Result 50.8 SECS (10.5-12.0)
[2021-07-06 08:05] LABS: INR 5.1
[2021-07-06] MEDS: FUROSEMIDE 40 MG TABLET PO SCH (08:15)
[2021-07-06] MEDS: POTASSIUM CHLORIDE 20 MEQ TABLET PO SCH (08:15)
[2021-07-06] MEDS: DOCUSATE SODIUM 100 MG CAPSULE PO SCH (08:16)
[2021-07-06] MEDS: FERROUS SULFATE 325 MG TABLET PO SCH (08:16)
[2021-07-06] MEDS: PANTOPRAZOLE 20 MG TABLET PO SCH (08:16)
[2021-07-06] MEDS: METOPROLOL SUCCINATE XL 25 MG TABLET PO SCH (08:16)
[2021-07-06 13:06] VITALS: BP 95/77
[2021-07-06] MEDS: ERTAPENEM 1,000 MG in SODIUM CHLORIDE 0.9% 100 ML IV SCH (13:42)
== END 2021-07-06 14:00 | DRG 481 ==
LOC: EDSEX → N.ED 08:30 → N.EDINP 08:30 → N.3E 10:29
PROVIDERS: ADMIT Family Medicine; ATTEND Family Medicine